=== PATIENT | male | born 1965 | race African-American/Black ===

== ENCOUNTER 2020-09-28 05:28 | Inpatient (IN) | payer OTHER ==
[~2020-09-28] VITALS: Ht 182.9 cm; Wt 108.9 kg
--- NOTE | ~2020-09-28 | HC ---
[facility] [place] [address] CONSULTATION Name: TOMA SIMON Moon Room #: 443-P [facility] IN M.R.#: [id number] Admission: 09/28/20 Attend Phys: Isaiah Ness MD Discharge: 10/06/20 Date of : 69 Report #: [id number] THIS REPORT FOR: cc: FAM - Family physician unknown FAM - Family physician unknown Yosi Howell MD ~ DATE OF SERVICE: 09/30/2020 CHIEF COMPLAINT: Cellulitis of the left lower extremity. HISTORY OF PRESENT ILLNESS: This is a 55-year-old male patient who was admitted to the hospital, was noted to have elevated blood sugars. He has been feeling weak in general. He started having some pain in his left leg after tripping while playing in the yard. He has been having increasing difficulty ambulating. He is not aware of being previously diabetic, was noted to have quite elevated blood sugar in the Emergency Department. I have been asked to see him with regard to wound care. He is complaining of some pain and swelling to the left foot and ankle area. PAST MEDICAL HISTORY: Positive for history of possible diabetes mellitus, recent sprained ankle, history of acid reflux. SOCIAL HISTORY: Negative for tobacco use. Positive for occasional alcohol use. MEDICATIONS: Include metformin. ALLERGIES: No known drug allergies. FAMILY HISTORY: Noncontributory. REVIEW OF SYSTEMS: CONSTITUTIONAL: The patient denies fever, chills or weight loss. NEUROLOGICAL: The patient denies focal weakness, numbness or tingling. EYES: The patient denies visual changes, redness or drainage. ENT: The patient denies earache, nasal drainage or sore throat. CARDIOVASCULAR: The patient denies chest pain, palpitations or diaphoresis. PULMONARY: The patient denies cough or shortness of breath. GASTROINTESTINAL: The patient denies nausea, abdominal pain. ORTHOPEDIC: The patient denies pain, swelling and redness to his left foot and ankle. Other systems in a 14-point review of systems are negative. PHYSICAL EXAMINATION: VITAL SIGNS: At this time include temperature 38.3, pulse 100, respiratory rate [facility] [address] [place] [address] CONSULTATION Name: CRISTIANERinTOMA D Room #: 443-P [facility] IN [facility]#: [id number] Admission: 09/28/20 Attend Phys: Isaiah Ness MD Discharge: 10/06/20 Date of : 69 Report #: [id number], blood pressure 148/84. GENERAL: This is a well-developed, well-nourished male patient who appears to be in minimal distress. HEENT: Head is normocephalic. Nose and throat are clear. NECK: Supple. LUNGS: Clear. ABDOMEN: Bowel sounds present. EXTREMITIES: Lower extremities demonstrate palpable distal pulses. He has significant erythema, warmth and edema on the dorsal aspect of the left foot and extending to the lateral malleolus. There are no open ulcerations, but some dry scaly skin noted. There is no obvious fluctuance at this time. LABORATORY STUDIES: Include white blood cell count 19.7, hemoglobin 12.2. Sodium 135, potassium 3.3, chloride 98, CO2 of 28, creatinine is 1.5. CLINICAL IMPRESSION: 1. Cellulitis to the left foot and ankle. 2. Diabetes mellitus with significant hyperglycemia. 3. Hypertension. RECOMMENDATIONS: At this point in time, we will recommend topical AmLactin lotion to the left leg for dry skin. Recommend elevation of the leg. Continue with empiric intravenous antibiotic therapy at present. We will recommend hemoglobin A1c and suggest evaluation of arterial Doppler. MRI demonstrates an intermediate full thickness tear of the anterior talofibular ligament. No evidence of abscess or foreign body present. Recommendation at this point in time, a topical AmLactin lotion intravenous antibiotic therapy. I have had a lengthy discussion with him regarding control of his diabetes including both diets and exercise. We will continue to follow him closely. I appreciate being asked to see him in consultation. By: [id number] [id number] Yosi Howell MD /nt
[2020-09-28 05:29] VITALS: BP 174/89
[2020-09-28] MEDS ORDERED: METFORMIN HCL500 M3 PO (05:37)
[2020-09-28 06:48] LABS: HEMATOCRIT 38.6 % (42.0-52.0); MCH 30.9 pg (26.0-34.0); MCHC 33.6 g/dL (28.0-37.0); MCV 91.8 fL (80.0-100.0); PLATELET COUNT 195 thou/uL (150-400); RBC 4.21 mil/uL (4.50-6.00); RDW 12.5 % (10.5-14.5); WBC 18.2 thou/uL (4.0-11.0)
[2020-09-28 07:10] VITALS: BP 153/90
[2020-09-28 07:14] LABS: ANION GAP 13 mmol/L (7-16); BUN 18 mg/dL (7-18); CALCIUM 9.2 mg/dL (8.5-10.1); CHLORIDE 92 mmol/L (98-107); CO2 25 mmol/L (21-32); CREATININE 1.8 mg/dL (0.7-1.3); GLUCOSE 438 mg/dL (74-106); POTASSIUM 3.6 mmol/L (3.5-5.1); SODIUM 130 mmol/L (136-145)
[2020-09-28 07:24] LABS: ALBUMIN 2.9 g/dL (3.4-5.0); LIPASE 73 U/L (73-393); SGOT 29 U/L (15-37); SGPT 30 U/L (30-65); TOTAL PROTEIN 8.4 g/dL (6.4-8.2); TROPONIN-I <0.06 ng/mL (<0.06)
[2020-09-28 08:10] LABS: URINE BILIRUBIN NEGATIVE (Negative); URINE BLOOD 2+ (Negative); URINE CLARITY CLEAR; URINE COLOR YELLOW; URINE GLUCOSE-RANDOM* 3+ (Negative); URINE KETONES 2+ (Negative); URINE LEUKOCYTES-REFLEX NEGATIVE (Negative); URINE NITRITE-REFLEX NEGATIVE (Negative); URINE PROTEIN (DIPSTICK) 2+ (Negative); URINE UROBILINOGEN 0.2 E.U./dl (0.2-1.0)
[2020-09-28 08:28] LABS: BACTERIA-REFLEX None Seen /HPF (None Seen); CASTS None Seen /LPF (None Seen); CRYSTALS None Seen /LPF (None Seen); SQUAMOUS 0-3 Few /LPF (0-3); URINE RBC 0-2 Rare /HPF (0-2); URINE WBC-REFLEX 0-5 Rare /HPF (0-5)
--- NOTE | 2020-09-28 08:32 | EKG ---
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 Maker: [place] [id number] : 1965 Requested By: Alvaro Qiu Order Number: [id number] MD: Brad Dietz Measurements Intervals [place] Rate: 107 P: 50 MN: 162 QRS: -57 QRSD: 110 T: 75 QT: 330 QTc: 441 Interpretive Statements Sinus tachycardia Probable left atrial enlargement RSR' in V1 or V2, right VCD Left anterior hemiblock Poor R wave progression No previous ECG available for comparison Electronically Signed On 09-28-2020 8:32:09 HAT MEASURER by Brad Dietz [email or web address] <ELECTRONICALLY SIGNED> By: Brad Dietz MD, [facility] 09/28/20 0832 [id number] Brad Dietz MD, FACC /EPI
[2020-09-28 10:40] LABS: ABSOLUTE NEUTROPHILS 13.7 thou/uL (1.4-8.2); LARGE PLATELETS OCCASIONAL
--- NOTE | 2020-09-28 12:42 | NUR ---
CALLED DR CORONADO TO REQUEST ORDER FOR INSULIN. LAST BLOOD SUGAR WAS 336 AND THE PT'S MEAL TRAY HAS ARRIVED.
--- NOTE | 2020-09-28 19:16 | NUR ---
REPORT ATTEMPTED TO MEDICAL NURSE. UNABLE TO TAKE REPORT AND WILL CALL BACK
[2020-09-28 19:49] VITALS: BP 139/78
[2020-09-28 20:00] VITALS: BP 154/78
--- NOTE | 2020-09-28 23:24 | NUR ---
Assumed pt care at 1999. Admitted with fever/cellulitis/DM. A/OX4,pleasant c/o pain LOP [address] SLE[employer] SEWER Tracy notified and order given for [place] 5/325 x1. Administered and effective, LOP 2. Temp 100.1 medicated with Tylenol for fever. Left foot/ankle with redness,edema and warm to touch,picture taken. Pt reports being in bed for 3 days otherwise was up ad yenny at home w/o any devices. Continent of B&B, voiding per urinal;urine dark yellow PO intake encouraged and pt compliant. Fall precauitons in place,will continue to monitor pt.
[2020-09-29 04:45] VITALS: BP 145/76
[2020-09-29 06:57] LABS: HEMATOCRIT 37.4 % (42.0-52.0); HEMOGLOBIN 12.2 gm/dL (14.0-18.0); MCH 30.4 pg (26.0-34.0); MCHC 32.7 g/dL (28.0-37.0); MCV 92.8 fL (80.0-100.0); RBC 4.03 mil/uL (4.50-6.00); RDW 12.4 % (10.5-14.5); WBC 19.7 thou/uL (4.0-11.0)
[2020-09-29 06:59] VITALS: BP 147/65
[2020-09-29 07:14] LABS: ALBUMIN 2.3 g/dL (3.4-5.0); CALCIUM 8.9 mg/dL (8.5-10.1); CREATININE 1.5 mg/dL (0.7-1.3); POTASSIUM 3.3 mmol/L (3.5-5.1); TOTAL BILIRUBIN 0.7 mg/dL (0.2-1.0); TOTAL PROTEIN 7.6 g/dL (6.4-8.2)
--- NOTE | 2020-09-29 09:53 | NUR ---
PT ADMITTED RELATED TO FEVER,DIABETES,CELLUITIS. CM REVIEWED CHART AND SPOKE WITH CARE TEAM. CM CALLED AND SPOKE WITH PT OVER THE PHONE THIS DAY. PT INDICATED THAT HE RESIDES IN A HOUSE WITH HIS FATHER WITH 6 STEPS TO ENTER AND A FULL FLIGHT OF STEPS INSIDE. 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 PT INDICATED THAT HIS PCP IS DR. [address] AT [facility] [address]. PT INDICATED THAT HE PLANS TO DC HOME ONCE MEDICALLY STABLE. CM TO FOLLOW INDICATED WITH DC PLANNING.
[2020-09-29 15:31] VITALS: BP 167/81
--- NOTE | 2020-09-29 17:23 | NUR ---
Assumed pt care this am, VS stable temperature is elevated, tylenol given. MD informed, Positive blood cultures out of 2 set were informed as well. Blood sugar monitored medications given as per emar. No insulin was given in the pm sionce blood sugar was 99. MRI sheet sent over, awaiting for pt to be taken down. chest xray , influenza test done. Temperature still elevated, informed MD awaiting response. Close monitoring beibg done.
[2020-09-29 21:29] VITALS: BP 155/82
[2020-09-30 01:20] VITALS: BP 134/73; BP 164/73
[2020-09-30 03:37] VITALS: BP 144/74; BP 175/77
--- NOTE | 2020-09-30 05:28 | NUR ---
Assumed care at 1900. A/OX4. Up with SBA/crutches to BR. C/o pain to left foot only when stepping on it. Left foot still red,swollen and warm to touch tho pt verbalizes it feels much better he's able to move it already. Continent of B&B this shift. Pt c/o a headache not fully reliefed by Tylenol, Bp a little elevated FLEXIBLE MACHINING SYSTEM MACHINIST Tracy notified no new orders given continue to monitor pt for now and follow with MD today if persists. Second blood cx back and gram positive cocci,FLEXIBLE MACHINING SYSTEM MACHINIST notified no new orders continue current abts therapy. Pt is NSR on telemetry. Resting quietly at this time w/o distress will continue to monitor pt. Fall precautions in place.
[2020-09-30 07:16] VITALS: BP 170/78
--- NOTE | 2020-09-30 12:00 | HC ---
[facility] [address] [place] [address] CONSULTATION Name: TOMA SIMON Room #: 456-P ADM IN ..#: [id number] Admission: 09/28/20 Attend Phys: Isaiah Ness MD Discharge: Date of : 69 Report #: [id number] THIS REPORT FOR: cc: FAM - Family physician unknown FAM - Family physician unknown Ritchie Santos MD ~ DATE OF SERVICE: 09/29/2020 INFECTIOUS DISEASE CONSULTATION ATTENDING PHYSICIAN: Dr. Ness. REASON FOR EVALUATION: Positive blood culture suggestive of Staph. The patient with uncontrolled diabetes mellitus and recent injury to his left ankle. HISTORY OF SUBJECTIVE: Chart reviewed and the patient examined. This is a 55-year-old, with known diabetes, diagnosed roughly 3 years ago. It has generally been uncontrolled. He states he injured his left ankle stepping awkwardly 2 days prior to admission. He was feeling generally not well. He presented and was found to have blood sugars excess of 400, lactic acid of 3.1 and white count of 18.2. His inflammatory markers were also elevated as well including CRP of 217 and a sed rate of 80. He was COVID negative. At the time of admission, blood cultures collected, now 1 out of 2 with growth of gram-positive cocci suggestive of Staph. He has been evaluated with imaging and found to have a left ankle sprain. Denies any significant pulmonary or gastrointestinal related complaints. Had experienced some episode of diarrhea and emesis previously as well, which have resolved. He was found to be febrile to 103 on admission. Empirically, continued on vancomycin, given a dose of ceftriaxone as well as azithromycin. ALLERGIES: None known. CURRENT MEDICATIONS: Include enoxaparin, acetaminophen, insulin lispro, vancomycin, ondansetron as needed. PAST MEDICAL HISTORY: Diabetes mellitus type 2. He does have some apparent peripheral neuropathy, acid reflux. SOCIAL HISTORY: Nonsmoker. Some marijuana use. Fairly regular beer drinking. FAMILY HISTORY: Noncontributory. REVIEW OF SYSTEMS: Otherwise, unremarkable. [address] [address] CONSULTATION Name: CRISTIANETOMA Gar Moon Room #: [address] [place] [address] [place] [facility].#: [id number] Admission: 09/28/20 Attend Phys: Isaiah Ness MD Discharge: Date of : 69 Report #: [id number] PHYSICAL EXAMINATION: GENERAL: He is pleasant, alert and cooperative. He is not overtly distressed. He has mild discomfort, especially with manipulation of the left ankle. On exam, he is lucid. VITAL SIGNS: Temperature earlier 101.4, pulse 100, respirations 18, blood pressure 147/65. SKIN: Warm, dry, no rashes. HEENT: Normocephalic. Extraocular muscles intact. NECK: Supple. LUNGS: Generally clear to auscultation bilaterally. HEART: Regular rate and rhythm. Borderline tachycardic around 100. ABDOMEN: Obese, soft, nontender. EXTREMITIES: Distal lower extremities were evaluated. He has marked inflammatory changes noted across the dorsum of the foot on to the ankle. Decreased range of motion. It is quite tender. He has got a superficial eschar overlying the distal medial plantar aspect of his right great toe as well. There is not a significant associated inflammation. GENITOURINARY: Deferred. RECTAL: Deferred. LABORATORY DATA: Chest x-ray shows some subsegmental areas of atelectasis in both lung bases. Influenza antigen was negative. Blood cultures 1 out of 2 as described above with gram-positive cocci suggestive of Staph. Electrolytes: Sodium 135, potassium 3.3, chloride 98, bicarbonate is 28, BUN and creatinine of 14 and 1.5, glucose is now 121. AST of 2.7, ALT of 25, albumin of 2.3. Total protein 7.6. Initial blood sugar was 438, creatinine 1.8. Sodium 130. Sed rate of 80. CRP of 217. CBC: White count of 19.7, H and H 12.2 and 37.4, platelets of 200. Arterial Doppler suggests there is some peripheral vascular disease and there is a question of inflow disease in the iliacs and distal aorta. Coronavirus testing was negative. Ankle x-ray showed mild soft tissue swelling, no acute ankle fracture or dislocation, extensive arterial vascular calcifications. ASSESSMENT AND PLAN: Febrile illness with marked hyperglycemia and elevation of several inflammatory markers as well as lactic acidemia. I suspect a blood culture may well be a real, we will continue vancomycin for now and I am going to check a level. We will check MRI of the left foot and ankle. May need a vascular evaluation as well. We will add incentive spirometry. Monitor expectantly. <ELECTRONICALLY SIGNED> By: Ritchie Santos MD 09/30/20 1200 [id number] [id number] Ritchie Santos MD /nt
--- NOTE | 2020-09-30 14:47 | NUR ---
CARE TEAM INDICATED THAT PT IS HAVING AN MRI THIS DAY. PT CONTINUES ON IV VANC. CM TO FOLLOW INDICATED WITH DC PLANNING.
[2020-09-30 15:24] VITALS: BP 148/84
[2020-09-30 19:44] VITALS: BP 147/74
--- NOTE | 2020-09-30 19:58 | NUR ---
Assumerd pt care this am, bp elevated informed MD again, medication given in the afternoon. Went down for MRI, uses crutches to get around the room. Self bath ldone this pm. Seen by wound care team and ID, diet and medications are well tolerated. POC followed with no signs or verbalizations of distress noted. Blood sugar monitored and medication given as per emar. Endorsed to the night nurse.
[2020-10-01 00:48] VITALS: BP 151/78
[2020-10-01 01:06] LABS: GLYCOHEMOGLOBIN (HGB A1C) 10.1 % (4.8-5.6)
--- NOTE | 2020-10-01 03:38 | NUR ---
ASSUMED PT CARE AROUND 193. AXOX4. FEVER TX PER MD ORDER WITH GOOD RELIEF. NO S/S ACUTE DISTRESS NOTED OR REPORTED AT THIS TIME. WILL CONT TO MONITOR FOR ANY CHANGES IN CONDITION.
[2020-10-01 05:42] VITALS: BP 154/82
[2020-10-01 06:00] LABS: HEMOGLOBIN 11.9 gm/dL (14.0-18.0); MCH 30.7 pg (26.0-34.0); MCHC 33.1 g/dL (28.0-37.0); MCV 92.7 fL (80.0-100.0); PLATELET COUNT 273 thou/uL (150-400); RBC 3.88 mil/uL (4.50-6.00); RDW 12.6 % (10.5-14.5)
[2020-10-01 06:04] LABS: CREATININE 1.4 mg/dL (0.7-1.3); MAGNESIUM 2.1 mg/dL (1.8-2.4); POTASSIUM 3.3 mmol/L (3.5-5.1)
[2020-10-01 07:29] LABS: ABSOLUTE NEUTROPHILS 15.4 thou/uL (1.4-8.2); METAMYELOCYTES 1 %; PLATELET ESTIMATE NORMAL
--- NOTE | 2020-10-01 09:31 | 2DMMODE ---
[facility] [address] [place] [address] 2 D/M-MODE ECHOCARDIOGRAM Name: TOMA SIMON Room #: 456-P ADM IN M.R.#: [id number] Admission: 09/28/20 Attend Phys: Isaiah Ness MD Discharge: Date of : 69 Report #: [id number] THIS REPORT FOR: cc: FAM - Family physician unknown FAM - Family physician unknown Juaquin Vargas MD [facility]GED WITH [facility] ~ APPROVED REPORT Study performed: 10/01/2020 08:21:27 EXAM: Comprehensive 2D, Doppler, and color-flow Echocardiogram Patient Location: Echo lab Room #: [facility] Status: routine BSA: 2.30 HR: 85 bpm BP: 154/82 mmHg Rhythm: NSR Other Information Study Quality: Good Indications + blood cultures; r/o endocarditis. Hx: HTN, DM, Staph. 2D Dimensions RVDd: 43.94 mm IVSd: 15.98 (7-11mm) LVOT Diam: 24.01 (18-24mm) LVDd: 51.02 mm PWd: 13.20 (7-11mm) Ascending Ao: 32.25 (22-36mm) LVDs: 38.76 (25-40mm) Aortic Root: 34.34 mm Volumes Left Atrial Volume (Systole) Single Plane 4CH: 51.87 mL Single Plane 2CH: 73.16 mL LA ESV Index: 32.00 mL/m2 Aortic Valve AoV Peak Norris.: 1.58 m/s AO Peak Gr.: 10.01 mmHg LVOT Max P.92 mmHg LVOT Max V: 1.49 m/s LAURA Vmax: 4.27 cm2 [facility] [address] [place] [address] 2 D/M-MODE ECHOCARDIOGRAM Name: TOMA SIMON Room #: 456-P [facility] IN [facility]#: [id number] Admission: 09/28/20 Attend Phys: Isaiah Ness MD Discharge: Date of : 69 Report #: [id number] Mitral Valve E/A Ratio: 1.3 MV Decel. Time: 235.68 ms MV E Max Norris.: 0.90 m/s MV A Norris.: 0.71 m/s MV PHT: 68.35 ms IVRT: 119.95 ms Pulmonary Vein P Vein S: 0.68 m/s P Vein A: 0.33 m/s P Vein D: 0.59 m/s P Vein A Dur.: 133.8 msec P Vein S/D Ratio: 1.15 Tricuspid Valve RAP Estimate: 10.00 mmHg Left Ventricle The left ventricle is normal size. There is normal LV segmental wall motion. Mild left ventricular hypertrophy. Moderate basal septal hypertrophy is present. The left ventricular systolic function is normal. LVEF is 60-65%. Moderate diastolic dysfunction is present (pseudonormal filling). Right Ventricle The right ventricle is normal size. The right ventricular systolic function is normal. Atria The left atrium size is normal. The right atrium size is normal. Aortic Valve The aortic valve is normal in structure. No aortic regurgitation is present. There is no aortic valvular stenosis. Mitral Valve The mitral valve is normal in structure. Trace mitral regurgitation. No evidence of mitral valve stenosis. Tricuspid Valve The tricuspid valve is normal in structure. There is no tricuspid valve regurgitation noted. Unable to assess PA pressure. Pulmonic Valve The pulmonary valve is normal in structure. Trace pulmonic [facility] [place] [address] [place] [address] 2 D/M-MODE ECHOCARDIOGRAM Name: TOMA SIMON Moon Room #: 456-P [facility] IN M.R.#: [id number] Admission: 09/28/20 Attend Phys: Isaiah Ness MD Discharge: Date of : 69 Report #: [id number] regurgitation. Great Vessels The aortic root is normal in size. The ascending aorta is normal in size. IVC is dilated and partially collapses. Pericardium There is no pericardial effusion. <Conclusion> Normal left ventricle size Moderate concentric hypertrophy Preserved ejection fraction 65%, apex not well seen Normal right ventricular size and function Normal mitral/aortic valve structure and function No tricuspid valve insufficiency detected No pericardial effusion <ELECTRONICALLY SIGNED> By: Juaquin Vargas MD, [facility] 10/01/2031 0 0 Juaquin Vargas MD, FACC /INF
[2020-10-01 13:07] VITALS: BP 154/93
--- NOTE | 2020-10-01 13:34 | NUR ---
ASSUMED CARE AT 0700 THIS MORNING. PT. IN BED. COOPERATIVE WITH ASSESSMENT. LEFT FOOT PAINFUL WITH DECREASED PEDAL PULSE IN THAT FOOT. FOOT REMAINS REDDENED AND WARM TO TOUCH. LUNGS CTA. HE IS PLEASANT AND COOPERATIVE. HE IS C/O THIS MORNING THAT HE IS UNABLE TO SLEEP THIS MORNING. PT. INFORMED HE HAS AN ECHO THIS MORNING AND PROBABLY WILL BE LATER IN THE DAY BEFORE HE CAN SLEEP.
--- NOTE | 2020-10-01 15:27 | NUR ---
PT CONTINUES ON IV VANC. ORTHO CONSULTED AND INDICATED HAT NO SURGICAL INTERVENTION IS INDICATED. CM TO FOLLOW INDICATED WITH DC PLANNING.
[2020-10-01 17:30] VITALS: BP 162/74
[2020-10-01 17:33] VITALS: BP 140/67
[2020-10-01 19:32] VITALS: BP 138/77
--- NOTE | 2020-10-02 05:41 | NUR ---
AXOX4. PLEASANT. VSS. NO S/S ACUTE DISTRESS NOTED OR REPORTED AT THIS TIME. WILL CONT TO MONITOR FOR ANY CHANGES IN CONDITION.
[2020-10-02 07:45] VITALS: BP 165/92
[2020-10-02 15:27] VITALS: BP 141/81
--- NOTE | 2020-10-02 15:38 | NUR ---
PT'S [employer] INSURANCE WAS INACTIVE OF 08/27/20. CM NOTIFIED DR. ARIAS. HE INDICATED THAT PT WILL LIKELY BE HERE OVER THE WEEKEND TO CONTINUE IV ABX TREATMENT. ANTICIPATE PT MAY NOW NEED ASSISTANCE IN FILLING PERSCRIPTIONS UPON DC. CM TO FOLLOW INDICATED WITH DC PLANNING.
--- NOTE | 2020-10-02 18:00 | NUR ---
ASSUMED CARE OF PATIENT AT SHIFT CHANGE. ASSESSMENT CHARTED. MEDICATIONS ADMINISTERED PER MAR. PATIENT IS A&OX4 AND MAKES NEEDS KNOWN. DENIES PAIN. PATIENT GETS UP SBA WITH HIS CRUTCHES; NO ISSUES. CELLULITIS ON L LEG, NON PITTING EDEMA AND STILL WARM TO TOUCH. FEVER OF 101 TREATED WITH ACETAMINOPHEN. VOIDS PER URINAL, NO ISSUES. INTAKE IS ADEQUATE. FALL PRECAUTIONS REMAIN IN PLACE AND PATIENT VOICES NO NEEDS AT THIS TIME. VASCUAR ACCESS CURRENTLY PLACING A PICC LINE ON PATIENT. PATIENT TO RECIEVE OUTPATIENT ABX. WILL CONTINUE TO MONITOR AND FOLLOW PLAN OF CARE
--- NOTE | 2020-10-02 18:37 | NUR ---
VAT CONSULTED FOR PICC LINE FOR RETIREMENT ABX. RIGHT UPPER ARM BASILIC VESSEL CANNULATED AND PICC PLACED, CHARTED. TRIMMED 47CM AND INSERTED 43CM.
[2020-10-02 20:02] VITALS: BP 147/75
--- NOTE | 2020-10-02 22:08 | NUR ---
OK TO USE RIGHT UPPER ARM PICC LINE PER NESTOR WITH IV TEAM.
[2020-10-03 08:30] VITALS: BP 158/83
[2020-10-03 15:48] VITALS: BP 144/69
--- NOTE | 2020-10-03 20:12 | NUR ---
ASSUMED CARE OF PATIENT THIS AM. ASSESSMENT CHARTED. MEDICATIONS ADMINISTERED PER MAR. VSS; AFEBRILE THIS SHIFT. REMAINS A&OX4 AND CALLS APPROPRIATELY. "FEELING BETTER". NO COMPLAINTS OTHER THAN BEING UPSET ABOUT HIS INSURANCE. FALL PRECAUTIONS IN PLACE. WILL CONTINUE TO MONITOR
[2020-10-03 20:50] VITALS: BP 160/76
--- NOTE | 2020-10-04 04:33 | NUR ---
VSS-AFEBRILE. RESTED WELL THROUGH NIGHT WITH FEW NEEDS. NO C/O PAIN. OOB AD VLADIMIR-STEADY ON FEET. VOIDS PER URINAL WITH NO DIFFICULTY. CALLS APPROPRIATELY WITH FOR ANY NEEDED ASSISTANCE.
[2020-10-04 08:06] VITALS: BP 150/75
[2020-10-04 12:42] LABS: ABSOLUTE NEUTROPHILS 11.3 thou/uL (1.4-8.2); BASOPHILS 0.2 % (0.0-2.0); EOSINOPHILS 0.7 % (0.0-3.0); HEMOGLOBIN 11.4 gm/dL (14.0-18.0); LYMPHOCYTES 12.4 % (24.0-44.0); MCHC 32.5 g/dL (28.0-37.0); MCV 92.4 fL (80.0-100.0); MONOCYTES 8.6 % (1.0-8.0); PLATELET COUNT 372 thou/uL (150-400); POLYS 78.1 % (36.0-66.0); RBC 3.79 mil/uL (4.50-6.00); RDW 13.2 % (10.5-14.5); WBC 14.5 thou/uL (4.0-11.0)
[2020-10-04 12:47] LABS: CALCIUM 8.8 mg/dL (8.5-10.1); CREATININE 1.4 mg/dL (0.7-1.3); POTASSIUM 3.4 mmol/L (3.5-5.1)
[2020-10-04 13:57] VITALS: BP 123/64
[2020-10-04 19:25] VITALS: BP 150/81
--- NOTE | 2020-10-04 19:55 | NUR ---
Assumed pt care this am, VS stable. Diet and medications are tolerated well. Blood sugar checks done, medication given as per emar. Pt took a complete self bath, wound care done. US of the left foot done, APEX informed (will come to see the pt Moday am.). POC followed with no signs or verbalizations of distress noted, endorsed to the night nurse.
--- NOTE | 2020-10-05 14:26 | NUR ---
Nutrition: Pt admitted with fever, DM, cellulitis/left foot infection. Seen for LOS. BG 102-230. Prior DM diet education completed on 09/29 and pt had admitted noncompliance. A1C 10.1. No improvement in pain on IV antibiotics past 2 days so pt in surgery at this time for wash out of left foot infection. PO intake/appetite documented as good. No weight since admission. BMI 32, obesity class 1. Will offer ensure max BID for additional nutrition at this time but will place pt as low nutrition risk with interventions in place.
--- NOTE | 2020-10-05 14:33 | NUR ---
ASSUMED PATIENT CARE AT SHIFT CHANGE ASSESSMENT CHARTED. MEDICATION GIVEN PER JAN. VSS. UNAWARE OF PATIENT PROCEDURE THIS DAY; NPO ORDERS NOT IN UNTIL AFTER BREAKFAST WAS SERVED. PRE-OP NOTIFIED AND MOVED PROCEDURE TO 1400. PATIENT UP INDEPENDENTLY WITH CRUTCHES AND NO ISSUES. STILL DENYING PAIN. COMPLIANT W ALL CARES. SIGNED CONSENT FOR PROCEDURE AND LEFT UNIT AT APPROX 1315 WITH TRANSPORT. PLAN IS TO SWITCH TO PO ABX AND DC HOME. WILL CONTINUE CARES AND MONITORING OF PATIENT
--- NOTE | 2020-10-05 15:45 | NUR ---
PT HAD I&D THIS DAY. PT CONTINUES ON IV ABX. PT IS UNINSURED AND LIKELY WON;T BE ABLE TO HAVE HOME INFUSION OPON DC. CM TO FOLLOW INDICATED WITH DC PLANNING.
[2020-10-05 15:59] VITALS: BP 152/84
--- NOTE | 2020-10-05 18:29 | NUR ---
PT ARRIVED ON UNIT AFTER I&D OF LEFT FOOT. PT DENIES PAIN, DRESSING APPEARS CDI WITH HEMOVAC DRAIN. PT ABLE TO WINGLE TOES, FOOT ELEVATED ON PILLOW. PICC LINE PATENT IN RIGHT UPPER ARM. PT TOLERATING DIET, NO C/O OF N/V. CALL LIGHT IN REACH. WILL CONTINUE TO MONITOR.
--- NOTE | 2020-10-05 18:46 | NUR ---
REPORT GIVEN TO DAPHNE CAIN ONCE PATIENT TRANSFERRED TO UNIT. PERSONAL ITEMS WITH PATIENT. VOICED NO SICOMFORT
--- NOTE | 2020-10-05 18:50 | NUR ---
I AGREE WITH NURSING ASSESSMENT AND NURSING NOTE DONE BY BRYANNA/AIR POLLUTION COMPLIANCE INSPECTOR.
[2020-10-05 19:10] VITALS: BP 140/79
[2020-10-06 04:04] VITALS: BP 155/95
--- NOTE | 2020-10-06 04:04 | NUR ---
ASSESSED AT START OF SHIFT 1900. PT A&OX4. RATES PAIN5/10 MANAGED WITH PO TYELNOL. LEFT FOOT DRESSING C/D/I WITH HEMOVAC DURING ASSESSMENT. PT CALLED OUT THIS AM DUE TO DRAINAGE ON FOOT. STATED HEMOVAC PULLED OUT BY ACCIDENT WHILE ASLEEP. NEW DRESSING PLACED WRAPED WITH GAUZE AND ELASTIC BANDAGE. PICC LINE INTACT AND ABX GIVEN. BSG CHECKED WITH COVERAGE. FALL PREC IN PLACE AND CALL LIGHT AT REACH WILL CONT TO MONITOR.
[2020-10-06 07:30] VITALS: BP 159/99
[2020-10-06 11:42] LABS: ABSOLUTE NEUTROPHILS 7.9 thou/uL (1.4-8.2); BASOPHILS 0.6 % (0.0-2.0); EOSINOPHILS 1.3 % (0.0-3.0); HEMATOCRIT 36.9 % (42.0-52.0); HEMOGLOBIN 12.1 gm/dL (14.0-18.0); LYMPHOCYTES 18.1 % (24.0-44.0); MCH 30.3 pg (26.0-34.0); MCHC 32.7 g/dL (28.0-37.0); MCV 92.8 fL (80.0-100.0); MONOCYTES 9.2 % (1.0-8.0); POLYS 70.8 % (36.0-66.0); RBC 3.98 mil/uL (4.50-6.00); RDW 13.2 % (10.5-14.5); WBC 11.1 thou/uL (4.0-11.0)
[2020-10-06 11:43] LABS: PLATELET COUNT 455 thou/uL (150-400)
[2020-10-06 11:53] LABS: CALCIUM 9.4 mg/dL (8.5-10.1); CREATININE 1.4 mg/dL (0.7-1.3); MAGNESIUM 2.1 mg/dL (1.8-2.4); POTASSIUM 3.7 mmol/L (3.5-5.1)
[2020-10-06] MEDS ORDERED: LINEZOLID600 MG PO (12:01)
[2020-10-06] MEDS ORDERED: GLIPIZIDE 10 MG10 MG PO (12:01)
--- NOTE | 2020-10-06 12:40 | O ---
[facility] [address] OPERATIVE REPORT Name: TOMA SIMON Room #: 443-P ADM IN M.R.#: [id number] Admission: 09/28/20 Attend Phys: Isaiah Ness MD Discharge: Date of : 69 Report #: [id number] THIS REPORT FOR: cc: VISH - Family physician unknown FAM - Family physician unknown Keyon Hernandez MD ~ CC: Isaiah Ness [facility] unknown DATE OF SERVICE: 09/28/2020 PREOPERATIVE DIAGNOSIS: Left foot dorsal abscess. POSTOPERATIVE DIAGNOSIS: Left foot dorsal abscess. PROCEDURE: I and D, left foot abscess. SURGEON: Keyon Hernandez MD DESULFURIZER HAND: Emma Jordan PA-C. ANESTHESIA: LMA. TOURNIQUET TIME: Approximately 10 minutes. FINDINGS: Large amount of purulence in the dorsum of the foot extending between the fourth and fifth webspace. Cultures were taken and sent x 2. ESTIMATED BLOOD LOSS: Minimal. COMPLICATIONS: None. CONDITION UPON LEAVING OPERATING ROOM: Stable. INDICATIONS FOR PROCEDURE: The patient is a 55-year-old gentleman who has been having left foot pain and swelling. He had an MRI scan about 4 days ago that showed soft tissue edema, but no specific abscess. He has been treated on IV antibiotics. He has been having uncontrolled blood sugars and with leukocytosis over the weekend, he developed more pronounced swelling is noted. An ultrasound of his foot was performed yesterday showing him to have a fluid collection on the dorsum of his foot over his fourth MTP joint. This clinically appeared to be an abscess and after discussion with him, he elected for I and D of his abscess of the left foot. DESCRIPTION OF PROCEDURE: Risks, benefits, alternatives, complications were discussed in detail with the patient including but not limited to risk of [facility] [address] [place] [address] OPERATIVE REPORT Name: CRISTIANERinTOMA D Room #: 443-P [facility] IN ..#: [id number] Admission: 09/28/20 Attend Phys: Isaiah Ness MD Discharge: Date of : 69 Report #: [id number] anesthesia, risk of damage to nerves, arteries, blood vessels, risk for infection, bleeding, continued infection and need for reoperation. Informed consent was obtained from the patient. Left foot was appropriately marked in the preoperative holding area. He had previously been on IV antibiotics for treatment of his infection. He was brought to the operating room and placed in supine position on operating room table. LMA anesthesia was induced without complication. Tourniquet was placed on the left thigh. Left lower extremity was prepped and draped in normal sterile fashion. Timeout was performed properly identifying the patient and procedure as well as the instrumentation. All in the operating room were in agreement. Left lower extremity was elevated, tourniquet was inflated. Tourniquet time was approximately 10 minutes. A longitudinal incision centered over the fourth metatarsal, was made with 10 blade through the skin and upon entering the deep tissue, a large amount of purulence was drained from the foot. This was explored digitally and did appear to communicate with the fourth webspace. Cultures of the purulence were sent x 2. This was then thoroughly irrigated with normal saline with bacitracin. A Hemovac drain was placed in the fourth webspace and the incision was closed with 3-0 nylon. Soft dressings were applied. The patient tolerated this procedure well and went to recovery room under care of Anesthesia postoperatively. <ELECTRONICALLY SIGNED> By: Keyon Hernandez MD 10/06/20 1240 [id number] Keyon Hernandez MD /nt
--- NOTE | 2020-10-06 13:15 | NUR ---
ASSUMED PT CARE THIS AM. PT VSS, A&OX4. PT PLEASANT WITH STAFF, CALLED WHEN NECESSARY. PICC LINE PATENT. DRESSING FROM SURGERY C/D/I. PT AMBULATORY TO RESTROOM WITH CRUTCHES. TAKES MEDS WITHOUT COMPLAINT. HYDRATION ENCOURAGED. PT HAS GOOD APPETITE. COMPLAINS OF NO PAIN. IV TO BE REMOVED PER . PT DISCHARGED TO HOME.
[2020-10-06 13:16] VITALS: BP 155/95
--- NOTE | 2020-10-06 13:18 | NUR ---
on-going assessment: snidy reviewed chart. PT MOVED UP TO 4S FROM 2N. PT HAS ORDERS TO DISCHARGE HOME TODAY. 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 PT IS SHOWING PENDING INSURANCE AT THIS TIME. [facility] HAS MED WITH PATIENT. PT IS NEEDING ASSISTANCE WITH COVERAGE FOR MEDICATION. SINDY SPOKE WITH DR. RG MACKENZIE WHO WROTE A P.O. SCRIPT FOR ZYVOX. CM PRICED THROUGH [facility] AT [address] ($71). CM PICKED UP MEDICATION AT OUTPATIENT PHARMACY AND GAVE TO BEDSIDE RN TO GIVE TO PATIENT. OUTPATIENT PHARMACY DID NOT HAVE THE WHOLE SUPPLY IN STOCK SO PT WAS INSTRUCTED TO COME BACK TOMORROW TO PET CARE ASSOCIATE THE REMAINED OF THE SCRIPT. CM EDUCATED PT ON THIS AND HE REPORTS HE CAN COME BACK AND WAS GIVEN INSTRUCTIONS HOW TO GET TO OUTPATIENT PHARMACY. PT HAS CRUTCHES TO USE AT HOME AND REPORTS HAVING A RIDE HOME. CASE CLOSED.
== END 2020-10-06 14:02 | disposition home or self-care (01) | DRG 854 ==
LOC: ER 05:28 → 4W 19:54 → 4S 10-05 16:22
PROVIDERS: Emergency Medicine; Internal Medicine; ADMIT Hospitalist; ATTEND Hospitalist
PROC: 0J9R0ZZ Drainage of Left Foot Subcutaneous Tissue and Fascia, Open Approach (ICD-10-PCS; principal; 2020-09-28)
PROC: 02HV33Z Insertion of Infusion Device into Superior Vena Cava, Percutaneous Approach (ICD-10-PCS; 2020-10-02)
DX: A41.02 Sepsis due to Methicillin resistant Staphylococcus aureus (principal); L03.116 Cellulitis of left lower limb; L02.612 Cutaneous abscess of left foot; N17.9 Acute kidney failure, unspecified; E11.65 Type 2 diabetes mellitus with hyperglycemia; A41.9 Sepsis, unspecified organism; K21.9 Gastro-esophageal reflux disease without esophagitis; E88.09 Other disorders of plasma-protein metabolism, not elsewhere classified; S93.402A Sprain of unspecified ligament of left ankle, initial encounter; Z20.828 Contact with and (suspected) exposure to other viral communicable diseases; E11.42 Type 2 diabetes mellitus with diabetic polyneuropathy; E11.51 Type 2 diabetes mellitus with diabetic peripheral angiopathy without gangrene; Z79.899 Other long term (current) drug therapy; X58.XXXA Exposure to other specified factors, initial encounter; Y93.89 Activity, other specified; Y92.89 Other specified places as the place of occurrence of the external cause; Y99.8 Other external cause status
CPT/HCPCS: 10045; 10102; 27000; 50010; 50101; 50386; 56527; 57091; 57103; 62110; 62900; 70005